=== PATIENT | male | born 1940 | race Caucasian/White ===

== ENCOUNTER 2016-09-16 15:13 | Emergency (ER) | payer MEDICARE, BC ==
[2016-09-16 15:28] VITALS: BP 166/97
--- NOTE | 2016-09-16 15:56 | EDM.PDOC ---
[id number] STUCK IN THROAT Time Seen by Provider: 09/16/16 15:30 Source of Information: Reports: Patient, Family History Limitations: Reports: No Limitations - History of Present Illness INITIAL COMMENTS - FREE TEXT/NARRATIVE: 76-year-old male with an esophageal foreign body for the past hour and a half. It occurred after he accidentally swallowed a whole grape. He had a similar incident with pork chop within the last 3 years. He is unable to swallow any fluids. Onset: Sudden Duration: Hour(s): (1-1/2 hours ago) Epigastric Pain Score (Numeric/FACES): 2 - Related Data Allergies Allergy/AdvReac Type Severity Reaction Status Date / Time No Known Allergies Allergy Verified 09/16/16 15:28 Home Meds: Home Meds Atenolol [Tenormin] 50 mg PO BEDTIME 10/03/14 [History] Simvastatin [Simvastatin] 40 mg PO BEDTIME 10/03/14 [History] metFORMIN [Glucophage] 1,000 mg PO BID 10/03/14 [History] Past Medical History Cardiovascular History: Reports: High Cholesterol, Hypertension Endocrine/Metabolic History: Reports: Diabetes, Type II - Past Surgical History GI Surgical History: Reports: Hernia, Inguinal Other GI Surgeries/Procedures: ESOPHAGEAL STRICTURE Social & Family History - Tobacco Use Smoking Status *Q: Unknown Ever Smoked - Recreational Drug Use Recreational Drug Use: No ED ROS GENERAL - Review of Systems Review Of Systems: See Below Constitutional: Denies: Fever, Chills Respiratory: Denies: Shortness of Breath, Cough Cardiovascular: Denies: Chest Pain GI/Abdominal: Reports: Abdominal Pain (Some discomfort in the upper abdomen) ED EXAM, GI/ABD - Physical Exam Exam: See Below Exam Limited By: No Limitations General Appearance: Alert, No Apparent Distress Respiratory/Chest: No Respiratory Distress, Lungs Clear GI/Abdominal Exam: Normal Bowel Sounds, Soft, Other (Only minimal discomfort with palpation of the upper abdomen) Course - Vital Signs Last Recorded V/S: Last Vital Signs Temp 98.0 F 09/16/16 15:22 Pulse 90 09/16/16 15:22 Resp 15 09/16/16 15:22 BP 166/97 H 09/16/16 15:22 Pulse Ox 97 09/16/16 15:22 - Re-Assessments/Exams Free Text/Narrative Re-Assessment/Exam: 09/16/16 16:13 The patient needs to leave in 2 hours to provide transportation to a family member, it is impossible to have the procedure done within that time. After discussing his symptoms with surgery, the patient will give this this evening and possibly until tomorrow morning and will return if symptoms haven't resolved in the next 12 hours. He will return sooner if worsening. Departure - Departure Time of Disposition: 16:20 Disposition: Home, Self-Care 01 Condition: Good Clinical Impression: Esophagus, foreign body Qualifiers: Encounter type: initial encounter Qualified Code(s): T18.108A - Unspecified foreign body in esophagus causing other injury, initial encounter - Discharge Information Instructions: Swallowed Foreign Body, Adult, [id number] Referrals: Aquiles Churchill MD [Primary Care Provider] - Forms: ED Department Discharge Care Plan Goals: Continuing to attempt to drink small amounts of fluids is okay. Return this evening if worsening or very uncomfortable. Otherwise recheck tomorrow morning if symptoms haven't resolved.
== END 2016-09-16 16:22 | disposition home or self-care (01) ==
LOC: JP.ED 15:13
DX: T18.128A Food in esophagus causing other injury, initial encounter (principal); I10 Essential (primary) hypertension; E78.00 Pure hypercholesterolemia, unspecified; E11.9 Type 2 diabetes mellitus without complications; Z98.890 Other specified postprocedural states
CPT/HCPCS: 99283

== ENCOUNTER 2018-10-17 13:13 | Emergency (ER) | payer BC, MEDICARE ==
[2018-10-17] MEDS ORDERED: Aspirin 81 MG Tab.Chew PO ONE (13:35)
[2018-10-17 13:45] VITALS: BP 147/78
--- NOTE | 2018-10-17 13:46 | EDM.PDOC ---
ED HPI GENERAL MEDICAL PROBLEM - General Chief Complaint: Neuro Symptoms/Deficits Stated Complaint: POSSIBLE STROKE Time Seen by Provider: 10/17/18 13:30 Source of Information: Reports: Patient, Family, Old Records, RN History Limitations: Reports: No Limitations - History of Present Illness INITIAL COMMENTS - FREE TEXT/NARRATIVE: 78 yo male here after a spell of slurred speech and possibly facial droop that was of short duration today. Had a similar spell in the past for which he was not seen by or reported to his provider or any provider. His sx's are all resolved today before arrival. He is on ASA 81 mg daily and did take it today. Says his BP is usually in the 120's. Saw his provider for ? sciatica within the week. Here now with his . His grandson thinks there was facial droop, but cannot recall what side was drooping. There is no reported JAMES. No chest pain or nausea. Ate lunch before the onset of sx's. Onset: Today, Sudden Onset Date: 10/17/18 Onset Time: 12:45 Duration: Minutes: Location: Reports: Face Quality: Reports: Other (no pain reported) Severity: Moderate Improves with: Reports: Other (time) Worsens with: Reports: Other (unknown) Context: Reports: Other (see HPI) Associated Symptoms: Reports: No Other Symptoms Treatments [employer]: Reports: Other (see below) (none) Right Posterior Leg Pain Score (Numeric/FACES): 5 - Related Data Allergies Allergy/AdvReac Type Severity Reaction Status Date / Time No Known Allergies Allergy Verified 10/17/18 13:30 Home Meds: Home Meds Atenolol [Tenormin] 50 mg PO BEDTIME 10/03/14 [History] Simvastatin 40 mg PO BEDTIME 10/03/14 [History] metFORMIN [Glucophage] 1,000 mg PO BID 10/03/14 [History] Aspirin [Adult Low Dose Aspirin EC] 81 mg PO DAILY 10/17/18 [History] Gabapentin [Neurontin] 100 mg PO BEDTIME 10/17/18 [History] Past Medical History Cardiovascular History: Reports: High Cholesterol, Hypertension Endocrine/Metabolic History: Reports: Diabetes, Type II - Past Surgical History GI Surgical History: Reports: Hernia, Inguinal Other GI Surgeries/Procedures: ESOPHAGEAL STRICTURE ED ROS GENERAL - Review of Systems Review Of Systems: See Below Constitutional: Reports: No Symptoms HEENT: Reports: No Symptoms Respiratory: Reports: No Symptoms Cardiovascular: Reports: No Symptoms GI/Abdominal: Reports: No Symptoms : Reports: No Symptoms Musculoskeletal: Reports: No Symptoms Skin: Reports: No Symptoms Neurological: Reports: Trouble Speaking, Change in Speech, Other (possible facial droop) Psychiatric: Reports: No Symptoms ED EXAM, NEURO - Physical Exam Exam: See Below Exam Limited By: No Limitations General Appearance: Alert, WD/WN, No Apparent Distress Eye Exam: Bilateral Eye: EOMI, Normal Inspection, PERRL Ears: Normal External Exam, Normal Canal, Normal TMs, Hearing Loss, Other ( bilateral hearing aids) Nose: Normal Inspection, No Blood Throat/Mouth: Normal Inspection, Normal Lips, Normal Oropharynx, Normal Voice, No Airway Compromise, Other (dentures up and down) Head Exam: Atraumatic, Normocephalic Neck: Normal Inspection, Supple, Non-Tender Respiratory/Chest: No Respiratory Distress, Lungs Clear, Normal Breath Sounds, No Accessory Muscle Use Cardiovascular: Regular Rate, Rhythm, No Edema GI/Abdominal: Normal Bowel Sounds, Soft, Non-Tender, No Distention Neurological: Alert, Normal Mood/Affect, Normal Dorsiflexion, CN II-XII Intact, Normal Plantar Flexion, No Motor/Sensory Deficits, Oriented x 3 DTR: 2+: Bicep (R), Bicep (L), Tricep (R), Tricep (L), Patella (R), Patella (L) , Achilles (R), Achilles (L) Back Exam: Normal Inspection, Full Range of Motion. No: CVA Tenderness (R), CVA Tenderness (L) Extremities: Normal Inspection, Normal Range of Motion, Non-Tender, No Pedal Edema Psychiatric: Normal Affect, Normal Mood Skin Exam: Warm, Dry, Intact, Normal Color, No Rash Course - Vital Signs Text/Narrative:: Case discussed with Dr. Lord @ 143h, Called Dr. Churchill(patient's primary) @ [phone]....still no return of my call after 30 minutes. Patient wants to go, will follow up with him in clinic. Last Recorded V/S: Last Vital Signs Temp 35.8 C 10/17/18 13:43 Pulse 81 10/17/18 13:43 Resp 18 10/17/18 13:43 BP 147/78 H 10/17/18 13:43 Pulse Ox 97 10/17/18 13:43 - Orders/Labs/Meds Orders: Active Orders 24 hr Category Date Time Status Cardiac Monitoring [RC] .As Directed Care 10/17/18 13:45 Active Labs: Laboratory Tests 10/17/18 10/17/18 10/17/18 Range/Units 13:54 13:54 14:10 WBC 8.9 (4.5-11.0) K/uL RBC 4.89 (4.30-5.90) M/uL Hgb 13.9 (12.0-15.0) g/dL Hct 43.2 (40.0-54.0) % MCV 88 (80-98) fL MCH 28 (27-31) pg MCHC 32 (32-36) % Plt Count 236 (150-400) K/uL Sodium 135 L (140-148) mmol/L Potassium 4.7 (3.6-5.2) mmol/L Chloride 100 (100-108) mmol/L Carbon Dioxide 26 (21-32) mmol/L Anion Gap 13.7 (5.0-14.0) mmol/L BUN 24 H (7-18) mg/dL Creatinine 1.3 (0.8-1.3) mg/dL Est Cr Clr Drug Dosing TNP Estimated GFR (MDRD) 54 L (>60) Glucose 111 H (74-106) mg/dL Calcium 8.8 (8.5-10.1) mg/dL Troponin I < 0.017 (0.000-0.056) ng/mL Urine Color Yellow (YELLOW) Urine Appearance Clear (CLEAR) Urine pH 6.0 (5.0-8.0) Ur Specific [place] 1.010 (1.008-1.030) Urine Protein Negative (NEGATIVE) mg/dL Urine Glucose (UA) Normal (NEGATIVE) mg/dL Urine Ketones Negative (NEGATIVE) mg/dL Urine Occult Blood Negative (NEGATIVE) Urine Nitrite Negative (NEGATIVE) Urine Bilirubin Negative (NEGATIVE) Urine Urobilinogen 0.2 (0.2-1.0) EU/dL Ur Leukocyte Esterase Negative (NEGATIVE) Urine RBC Not seen (0-5) Urine WBC Not seen (0-5) Ur Epithelial Cells Not seen Amorphous Sediment Few Urine Bacteria Not seen Urine Mucus Not seen Meds: Medications Discontinued Medications Generic Name Dose Route Start Last Admin Trade Name Samir PRN Reason Stop Dose Admin Aspirin 324 mg 10/17/18 13:35 10/17/18 13:39 Aspirin PO 10/17/18 13:36 324 mg ONETIME ONE Administration - Radiology Interpretation Free Text/Narrative:: Head CT without contrast- IMPRESSION: 1. No evidence of acute hemorrhage, mass effect or cortical based infarction. 2. Small vessel ischemic changes and mild volume loss. CT Results Date: 10/17/18 Departure - Departure Time of Disposition: 15:25 Disposition: Home, Self-Care 01 Condition: Fair Clinical Impression: TIA (transient ischemic attack) - Discharge Information *PRESCRIPTION DRUG MONITORING PROGRAM REVIEWED*: No *COPY OF PRESCRIPTION DRUG MONITORING REPORT IN PATIENT JAMES: No Instructions: Transient Ischemic Attack, [id number] Referrals: Aquiles Churchill MD [Primary Care Provider] - Forms: ED Department Discharge Additional Instructions: Continue all your current medications. Best not to drive until Dr. Churchill thinks it is safe to do so. See Dr. Churchill in his office [place] for follow up and to arrange for further outpatient testing. - My Orders Last 24 Hours: My Active Orders 10/17/18 13:45 Cardiac Monitoring [RC] .As Directed - Assessment/Plan Last 24 Hours: My Active Orders 10/17/18 13:45 Cardiac Monitoring [RC] .As Directed
--- NOTE | 2018-10-17 14:18 | CRLCT ---
INDICATION: 78-year-old male. Slurred speech. TECHNIQUE: CT images from foramen magnum to the vertex without contrast. Axial and coronal reconstructions are reviewed. FINDINGS: The ventricles and subarachnoid spaces are mildly prominent due to mild volume loss. No acute intracranial hemorrhage no subdural fluid collections no mass effect. Small vessel ischemic changes within deep supratentorial white matter. Preservation of vaughn-white interface. No hyperdense cerebral artery sign to suggest acute infarction is seen. The left carotid calcifications parasellar internal carotid arteries. The orbits and bony calvarium and skull base are unremarkable. IMPRESSION: 1. No evidence of acute hemorrhage, mass effect or cortical based infarction. 2. Small vessel ischemic changes and mild volume loss. Please note that all CT scans at this facility use dose modulation, iterative reconstruction, and/or weight-based dosing when appropriate to reduce radiation dose to as low as reasonably achievable. Dictated by Zane Hopepr MD @ Oct 17 2018 2:14PM Signed by Dr. Zane Hopper @ Oct 17 2018 2:17PM
== END 2018-10-17 15:27 | disposition home or self-care (01) ==
LOC: JP.ED 13:13
DX: G45.9 Transient cerebral ischemic attack, unspecified (principal); I10 Essential (primary) hypertension; E11.9 Type 2 diabetes mellitus without complications; E78.00 Pure hypercholesterolemia, unspecified; Z79.82 Long term (current) use of aspirin; Z79.899 Other long term (current) drug therapy
CPT/HCPCS: 36415; 70450; 80048; 81001; 84484; 85027; 99284; A9270

== ENCOUNTER 2020-04-23 15:38 | Emergency (ER) | payer BC, MEDICARE, OTHER, SELFPAY ==
[2020-04-23 15:55] VITALS: BP 153/56; PULSE 79
[2020-04-23] MEDS ORDERED: Sodium Chloride 0.9% 10 ML Syringe FLUSH PRN (16:19)
--- NOTE | 2020-04-23 16:25 | EDM.PDOC ---
ED HPI GENERAL MEDICAL PROBLEM - General Chief Complaint: General Stated Complaint: NUMBNESS IN ARM,HEADACHE Time Seen by Provider: 04/23/20 16:02 Source of Information: Reports: Patient, Family, Old Records, RN Notes Reviewed History Limitations: Reports: No Limitations - History of Present Illness INITIAL COMMENTS - FREE TEXT/NARRATIVE: 80-year-old gentleman presents the emergency department a complaint of intermittent right arm numbness, he states is been going on for about a week lasts about 10 to 15 minutes and then resolves. He does have a history of strokelike symptoms evaluated a couple years ago underwent MRI which did show an infarct in the frontal lobe right side. He has been taking an aspirin full dose daily has no other complaints at this time, his arm did go numb today but is not numb now he describes the numbness mainly on the lateral aspect of the arm he is describing a C5-C6 distribution - Related Data Allergies Allergy/AdvReac Type Severity Reaction Status Date / Time No Known Allergies Allergy Verified 10/17/18 13:30 Home Meds: Home Meds Simvastatin 40 mg PO BEDTIME 10/03/14 [History] atenoloL [Tenormin] 50 mg PO BEDTIME 10/03/14 [History] metFORMIN [Glucophage] 1,000 mg PO BID 10/03/14 [History] Aspirin [Adult Low Dose Aspirin EC] 81 mg PO DAILY 10/17/18 [History] Gabapentin [Neurontin] 100 mg PO BEDTIME 10/17/18 [History] Past Medical History HEENT History: Reports: Hard of Hearing Cardiovascular History: Reports: High Cholesterol, Hypertension Respiratory History: Reports: Pneumonia, Recurrent Musculoskeletal History: Reports: Back Pain, Chronic 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) Endocrine/Metabolic History: Reports: Diabetes, Type II Dermatologic History: Reports: Other (See Below) Other Dermatologic History: rash - Infectious Disease History Infectious Disease History: Reports: Chicken Pox, Measles, Mumps - Past Surgical History HEENT Surgical History: Reports: Oral Surgery GI Surgical History: Reports: Hernia, Inguinal Other GI Surgeries/Procedures: ESOPHAGEAL STRICTURE Social & Family History - Tobacco Use Tobacco Use Status *Q: Never Tobacco User - Caffeine Use Caffeine Use: Reports: Coffee ED ROS GENERAL - Review of Systems Review Of Systems: See Below Constitutional: Reports: No Symptoms HEENT: Reports: No Symptoms Respiratory: Reports: No Symptoms Cardiovascular: Reports: No Symptoms GI/Abdominal: Reports: No Symptoms : Reports: No Symptoms Musculoskeletal: Reports: No Symptoms Skin: Reports: No Symptoms Neurological: Reports: Numbness ED EXAM, GENERAL - Physical Exam Exam: See Below Free Text/Narrative:: Cranial nerves II test with pupillary light reflex 4 mm to 2 mm bilaterally, CN III test pupillary constriction, lid elevation and eye abduction bilaterally, CN IV downward movement of eyes bilaterally, CN V good jaw movement, CN lateral deviation of the eyes bilaterally to finger movement, CN VII symmetrical smile shows teeth without difficulty, CN VIII pass finger rub to ears bilaterally, CN IX adequate voice and tone, CN X adequate voice and tone no difficulty swallowing, CN XI can shrug shoulders without difficulty, CN XII can stick tongue out without difficulty, cranial nerves II to XII intact as tested, power is 5 out 5 in upper and lower extremities, patellar reflex, biceps reflex +2 can do finger to nose without difficulty, no dysdiadochokinesis, no difficulty with rapid alternating movements can do [id number] without dif ficulty, Romberg is negative, has adequate gait can do heel to toe, can toe walk and heel walk no cerebellar dysfunction , no focal neurologic deficit Exam Limited By: No Limitations General Appearance: Alert, WD/WN, No Apparent Distress Nose: Normal Inspection, Normal Mucosa, No Blood Throat/Mouth: Normal Inspection, Normal Lips, Normal Teeth, Normal Gums, Normal Oropharynx, Normal Voice, No Airway Compromise Head: Atraumatic, Normocephalic Neck: Normal Inspection, Supple, Non-Tender, Full Range of Motion Respiratory/Chest: No Respiratory Distress, Lungs Clear, Normal Breath Sounds, No Accessory Muscle Use, Chest Non-Tender Cardiovascular: Regular Rate, Rhythm, No Murmur GI/Abdominal: Soft, Non-Tender Course - Vital Signs Last Recorded V/S: Last Vital Signs Temp 98 F 04/23/20 17:59 Pulse 79 04/23/20 17:59 Resp 18 04/23/20 17:59 BP 153/56 H 04/23/20 17:59 Pulse Ox 97 04/23/20 17:59 - Orders/Labs/Meds Orders: Active Orders 24 hr Category Date Time Status EKG Documentation Completion [RC] ASDIRECTED Care 04/23/20 16:20 Active Peripheral IV Care [RC] . DIRECTED Care 04/23/20 16:20 Active Sodium Chloride 0.9% [Normal Saline] 1,000 ml Med 04/23/20 16:30 Active IV .BOLUS Sodium Chloride 0.9% [Saline Flush] Med 04/23/20 16:19 Active 10 ml FLUSH ASDIRECTED PRN Peripheral IV Insertion Adult [OM.PC] Urgent Oth 04/23/20 16:19 Ordered EKG 12 Lead [EK] Stat Ther 04/23/20 16:19 Ordered Medication Orders Sodium Chloride (Normal Saline) 1,000 mls @ 500 mls/hr IV .BOLUS SIMEON Last Admin: 04/23/20 17:58 Dose: 500 mls/hr Documented by: CARA Sodium Chloride (Sodium Chloride 0.9% 10 Ml Syringe) 10 ml FLUSH ASDIRECTED PRN PRN Reason: Keep Vein Open Labs: Laboratory Tests 04/23/20 04/23/20 04/23/20 Range/Units 16:34 16:34 16:34 WBC 8.1 (4.5-11.0) K/uL RBC 4.83 (4.30-5.90) M/uL Hgb 14.0 (12.0-15.0) g/dL Hct 43.3 (40.0-54.0) % MCV 90 (80-98) fL MCH 29 (27-31) pg MCHC 32 (32-36) % Plt Count 215 (150-400) K/uL Neut % (Auto) 63 (36-66) % Lymph % (Auto) 23 L (24-44) % [place] % (Auto) 9 H (2-6) % Eos % (Auto) 4 (2-4) % Baso % (Auto) 0 (0-1) % PT 10.8 (9.5-12.0) sec INR 0.99 (0.80-1.20) APTT 24.3 L (27.0-36.0) sec Sodium 142 (140-148) mmol/L Potassium 3.9 (3.6-5.2) mmol/L Chloride 104 (100-108) mmol/L Carbon Dioxide 25 (21-32) mmol/L Anion Gap 12.7 (5.0-14.0) mmol/L BUN 20 H (7-18) mg/dL Creatinine 1.4 H (0.8-1.3) mg/dL Est Cr Clr Drug Dosing 38.43 mL/min Estimated GFR (MDRD) 49 L (>60) Glucose 151 H (74-106) mg/dL Lactic Acid (0.4-2.0) mmol/L Calcium 8.8 (8.5-10.1) mg/dL Total Bilirubin 0.4 (0.2-1.0) mg/dL AST 20 (15-37) U/L ALT 26 (12-78) U/L Alkaline Phosphatase 79 (46-116) U/L Total Protein 7.3 (6.4-8.2) g/dL Albumin 4.0 (3.4-5.0) g/dL Globulin 3.3 (2.3-3.5) g/dL Albumin/Globulin Ratio 1.2 (1.2-2.2) 04/23/20 Range/Units 16:34 WBC (4.5-11.0) K/uL RBC (4.30-5.90) M/uL Hgb (12.0-15.0) g/dL Hct (40.0-54.0) % MCV (80-98) fL MCH (27-31) pg MCHC (32-36) % Plt Count (150-400) K/uL Neut % (Auto) (36-66) % Lymph % (Auto) (24-44) % [place] % (Auto) (2-6) % Eos % (Auto) (2-4) % Baso % (Auto) (0-1) % PT (9.5-12.0) sec INR (0.80-1.20) APTT (27.0-36.0) sec Sodium (140-148) mmol/L Potassium (3.6-5.2) mmol/L Chloride (100-108) mmol/L Carbon Dioxide (21-32) mmol/L Anion Gap (5.0-14.0) mmol/L BUN (7-18) mg/dL Creatinine (0.8-1.3) mg/dL Est Cr Clr Drug Dosing mL/min Estimated GFR (MDRD) (>60) Glucose (74-106) mg/dL Lactic Acid 3.1 H (0.4-2.0) mmol/L Calcium (8.5-10.1) mg/dL Total Bilirubin (0.2-1.0) mg/dL AST (15-37) U/L ALT (12-78) U/L Alkaline Phosphatase (46-116) U/L Total Protein (6.4-8.2) g/dL Albumin (3.4-5.0) g/dL Globulin (2.3-3.5) g/dL Albumin/Globulin Ratio (1.2-2.2) Meds: Medications Generic Name Dose Route Start Last Admin Trade Name Freq PRN Reason Stop Dose Admin Sodium Chloride 1,000 mls @ 500 mls/hr 04/23/20 16:30 04/23/20 17:58 Normal Saline IV 500 mls/hr .BOLUS SIMEON Administration Sodium Chloride 10 ml 04/23/20 16:19 Sodium Chloride 0.9% 10 Ml Syringe FLUSH ASDIRECTED PRN Keep Vein Open Discontinued Medications Generic Name Dose Route Start Last Admin Trade Name Freq PRN Reason Stop Dose Admin Sodium Chloride 100 mls @ 3.5 mls/sec 04/23/20 17:00 Normal Saline IV 04/23/20 17:01 ASDIRECTED SIMEON Iopamidol 100 ml 04/23/20 17:00 Iopamidol 755 Mg/Ml 100 Ml Bottle IV 04/23/20 18:00 . DIRECTED SIMEON Sodium Chloride 10 ml 04/23/20 17:00 Sodium Chloride 0.9% 10 Ml Syringe FLUSH 04/23/20 17:01 ONETIME ONE Departure - Departure Time of Disposition: 18:22 Disposition: Home, Self-Care 01 Condition: Fair Clinical Impression: Right arm numbness - Discharge Information Referrals: Aquiles Churchill MD [Primary Care Provider] - Forms: ED Department Discharge Additional Instructions: Please follow-up with your primary care this next week for further evaluation, call or return to the emergency department worsening of symptoms Sepsis Event Note (ED) - Focused Exam Vital Signs: Vital Signs Temp Pulse Resp BP Pulse Ox 04/23/20 17:59 98 F 79 18 153/56 H 97 04/23/20 15:54 98 F 79 18 153/56 H 97 - My Orders Last 24 Hours: My Active Orders 04/23/20 16:19 Sodium Chloride 0.9% [Saline Flush] 10 ml FLUSH ASDIRECTED PRN Peripheral IV Insertion Adult [OM.PC] Urgent EKG 12 Lead [EK] Stat 04/23/20 16:20 EKG Documentation Completion [RC] ASDIRECTED Peripheral IV Care [RC] . DIRECTED 04/23/20 16:30 Sodium Chloride 0.9% [Normal Saline] 1,000 ml IV .BOLUS - Assessment/Plan Last 24 Hours: My Active Orders 04/23/20 16:19 Sodium Chloride 0.9% [Saline Flush] 10 ml FLUSH ASDIRECTED PRN Peripheral IV Insertion Adult [OM.PC] Urgent EKG 12 Lead [EK] Stat 04/23/20 16:20 EKG Documentation Completion [RC] ASDIRECTED Peripheral IV Care [RC] . 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
[2020-04-23] MEDS ORDERED: Sodium Chloride 0.9% 1,000 ML IV SCH (16:30)
[2020-04-23] MEDS ORDERED: Sodium Chloride 0.9% 10 ML Syringe FLUSH ONE (17:00)
[2020-04-23] MEDS ORDERED: Sodium Chloride 0.9% 100 ML IV SCH (17:00)
[2020-04-23] MEDS ORDERED: Iopamidol 755 Mg/ML 100 ML Bottle IV SCH (17:00)
--- NOTE | 2020-04-23 18:04 | CRLCT ---
CT HEAD DATE: 04/23/2020 CLINICAL HISTORY: Patient with right arm numbness and headache. TECHNIQUE: Standard CT scanning of the head was performed. COMPARISON: CT 10/17/2018. FINDINGS: There is no intracranial hemorrhage. There is no territorial infarction. There is an old lacunar infarct in the left basal ganglia. There are mild microangiopathic changes. There is diffuse parenchymal volume loss. There is no mass effect or midline shift. The calvarium is unremarkable. The orbits are unremarkable. The paranasal sinuses are unremarkable. The mastoid air cells are unremarkable. The soft tissues are unremarkable. IMPRESSION: 1. No intracranial hemorrhage or territorial infarction. 2. Old lacunar infarct in the left basal ganglia. 3. Mild microangiopathic changes and diffuse parenchymal volume loss. Please note that all CT scans at this facility use dose modulation, iterative reconstruction, and/or weight-based dosing when appropriate to reduce radiation dose to as low as reasonably achievable. Dictated by: Eunice Blanco MD @ 04/23/2020 18:03:37 (Electronically Signed)
--- NOTE | 2020-04-23 18:08 | CRLCT ---
CT ANGIOGRAM HEAD DATE: 04/23/2020 CLINICAL HISTORY: Patient with right arm numbness and headache. TECHNIQUE: Standard helical CT image acquisition through the intracranial circulation following intravenous administration of contrast material with bolus tracking. Multiplanar reconstructed images were performed and interpreted. COMPARISON: CT same day. FINDINGS: There is no cerebral aneurysm or large vessel occlusion. There is mild diffuse intracranial atherosclerosis. IMPRESSION: 1. No cerebral aneurysm or large vessel occlusion. 2. Mild diffuse intracranial atherosclerosis. Please note that all CT scans at this facility use dose modulation, iterative reconstruction, and/or weight-based dosing when appropriate to reduce radiation dose to as low as reasonably achievable. Dictated by: Eunice lBanco MD @ 04/23/2020 18:07:18 (Electronically Signed)
== END 2020-04-23 18:50 | disposition home or self-care (01) ==
LOC: JP.ED 15:38
DX: R20.0 Anesthesia of skin (principal); E78.00 Pure hypercholesterolemia, unspecified; I10 Essential (primary) hypertension; E11.9 Type 2 diabetes mellitus without complications; Z79.82 Long term (current) use of aspirin; Z79.84 Long term (current) use of oral hypoglycemic drugs; Z79.899 Other long term (current) drug therapy; Z86.73 Personal history of transient ischemic attack (TIA), and cerebral infarction without residual deficits
CPT/HCPCS: 36415; 70450; 70496; 80053; 83605; 85025; 85610; 85730; 93005; 99283; 99284-25; J7030; Q9967

== ENCOUNTER 2020-06-22 12:45 | Emergency (ER) | payer MEDICARE ==
[2020-06-22 12:57] VITALS: BP 149/69; PULSE 79
--- NOTE | 2020-06-22 13:23 | EDM.PDOC ---
ED HPI GENERAL MEDICAL PROBLEM - General Chief Complaint: Neuro Symptoms/Deficits Stated Complaint: POSSIBLE STROKE Time Seen by Provider: 06/22/20 13:00 Source of Information: Reports: Patient, Family History Limitations: Reports: No Limitations - History of Present Illness INITIAL COMMENTS - FREE TEXT/NARRATIVE: 80-year-old male with a previous history of TIAs, developed right-sided facial weakness, right arm weakness, and dysarthria around 2 hours ago. He had no headache, visual complaints, shortness of breath, palpitations, lower extremity weakness or dizziness. He has had the symptoms in the past and they have resolved. He took a full dose aspirin, and within 30 minutes it did not seem to be improving significantly so decided to come in. However between the time he decided to come in and the time he got here, the symptoms are now markedly improved. He still has some slight dysarthria, very slight facial droop but otherwise he feels fine. Onset: Sudden Duration: Hour(s): (Just under 2 hours ago) Location: Reports: Face, Upper Extremity, Right Quality: Reports: Other (Asymptomatic other than weakness) Associated Symptoms: Reports: Weakness (Right arm and right face only). Denies: Confusion, Chest Pain, Cough, Fever/Chills, Loss of Appetite, Malaise, Nausea/Vomiting, Shortness of Breath - Related Data Allergies Allergy/AdvReac Type Severity Reaction Status Date / Time No Known Allergies Allergy Verified 06/22/20 12:53 Home Meds: Home Meds Simvastatin 40 mg PO BEDTIME 10/03/14 [History] atenoloL [Tenormin] 50 mg PO BEDTIME 10/03/14 [History] metFORMIN [Glucophage] 1,000 mg PO BID 10/03/14 [History] Aspirin [Adult Low Dose Aspirin EC] 81 mg PO DAILY 10/17/18 [History] Gabapentin [Neurontin] 100 mg PO BEDTIME 10/17/18 [History] Past Medical History HEENT History: Reports: Hard of Hearing Cardiovascular History: Reports: High Cholesterol, Hypertension Respiratory History: Reports: Pneumonia, Recurrent Musculoskeletal History: Reports: Back Pain, Chronic Neurological History: Reports: CVA Endocrine/Metabolic History: Reports: Diabetes, Type II Dermatologic History: Reports: Other (See Below) Other Dermatologic History: rash - Infectious Disease History Infectious Disease History: Reports: Chicken Pox, Measles, Mumps - Past Surgical History HEENT Surgical History: Reports: Oral Surgery GI Surgical History: Reports: Hernia, Inguinal Other GI Surgeries/Procedures: ESOPHAGEAL STRICTURE Social & Family History - Tobacco Use Tobacco Use Status *Q: Never Tobacco User - Caffeine Use Caffeine Use: Reports: Coffee ED ROS GENERAL - Review of Systems Review Of Systems: See Below Constitutional: Denies: Fever, Chills, Malaise HEENT: Denies: Vision Change Respiratory: Denies: Shortness of Breath, Cough Cardiovascular: Denies: Chest Pain, Palpitations GI/Abdominal: Denies: Abdominal Pain, Nausea, Vomiting Musculoskeletal: Reports: No Symptoms Skin: Denies: Pallor, Bruising Neurological: Reports: Other (Symptoms are explained in HPI). Denies: Dizziness, Headache Psychiatric: Reports: No Symptoms ED EXAM, NEURO - Physical Exam Exam: See Below Exam Limited By: No Limitations General Appearance: Alert, No Apparent Distress Eye Exam: Bilateral Eye: EOMI, Normal Inspection (Vision davison intact) Head Exam: Atraumatic Neck: Supple, Non-Tender. No: Carotid Bruit Respiratory/Chest: No Respiratory Distress, Lungs Clear Cardiovascular: Regular Rate, Rhythm. No: Extra Beats GI/Abdominal: Soft, Non-Tender Neurological: Alert, Normal Gait, Oriented x 3, Other (Very minimal right grasp weakness compared to the left, and very subtle right facial deficit or his only objective findings at this time) Course - Vital Signs Last Recorded V/S: Last Vital Signs Temp 97.8 F 06/22/20 12:51 Pulse 79 06/22/20 12:51 Resp 16 06/22/20 12:51 BP 149/69 H 06/22/20 12:51 Pulse Ox 99 06/22/20 12:51 - Re-Assessments/Exams Free Text/Narrative Re-Assessment/Exam: 06/22/20 13:22 Patient was sent back for a CT of his head without contrast. I explained to him that he has had several of these now which are warning signs and he should have a neurological evaluation. 06/22/20 13:[address] is negative, I reviewed his records and last visit he had a CT angiogram, follow-up carotid Dopplers and has had a full work-up. I am going to discuss stronger anticoagulant with his primary provider, Dr. Churchill, but he has not called me back. I like the patient to recheck later this week to discuss Eliquis or some other option. Departure - Departure Time of Disposition: 14:15 Disposition: Home, Self-Care 01 Clinical Impression: TIA (transient ischemic attack) - Discharge Information Instructions: Transient Ischemic Attack, [id number] Referrals: Aquiles Churchill MD [Primary Care Provider] - Forms: ED Department Discharge Care Plan Goals: Continue your current medications, call the clinic to see if you can get a recheck later this week with Dr. Churchill to discuss different medications for TIA prevention. Return to the emergency room if worsening or concerns. Sepsis Event Note (ED) - Evaluation Sepsis Screening Result: No Definite Risk - Focused Exam Vital Signs: Vital Signs Temp Pulse Resp BP Pulse Ox 06/22/20 12:51 97.8 F 79 16 149/69 H 99
--- NOTE | 2020-06-22 13:42 | CT ---
Head wo Cont CLINICAL HISTORY: Screening COMPARISON: 04/23/2020 TECHNIQUE: Transverse scans were obtained from the base of the skull through the vertex without IV contrast on a multislice, multidetector CT scanner. Auto dosage reduction and iterative reconstruction techniques employed. FINDINGS: No focal abnormal parenchymal density is identified. There is no mass effect, hemorrhage, or extraaxial collection. There is some chronic ischemic microvascular change The basal cisterns and sulci over the convexities are prominent. The ventricles are prominent. IMPRESSION: Age-related atrophy No acute intracranial process
== END 2020-06-22 14:15 | disposition home or self-care (01) ==
LOC: JP.ED 12:45
DX: G45.9 Transient cerebral ischemic attack, unspecified (principal); E78.00 Pure hypercholesterolemia, unspecified; I10 Essential (primary) hypertension; E11.9 Type 2 diabetes mellitus without complications; Z79.82 Long term (current) use of aspirin; Z79.84 Long term (current) use of oral hypoglycemic drugs; Z79.899 Other long term (current) drug therapy
CPT/HCPCS: 70450; 70450-26; 99285-25

== ENCOUNTER → 2024-04-03 | Day surgery (SDC) | payer MEDICARE ==
[~2024-04-03] MED LIST: Dexamethasone 4 MG/ML SDV ONE; Glycopyrrolate 0.2 MG/ML 5 ML MDV ONE; Neostigmine Methylsulfate 10 MG/10 ML MDV ONE; Ondansetron 4 MG/2 ML SDV ONE; Propofol 200 MG/20 ML SDV ONE; Rocuronium 50 MG/5 ML Vial ONE; Succinylcholine 200 MG/10 ML MDV ONE; fentaNYL 100 MCG/2 ML SDV ONE
[2024-04-03] MEDS: Glucagon,Human Recombinant 1 MG Vial IM ONE (17:21)
[2024-04-03] MEDS: Ondansetron 4 MG/2 ML SDV IVPUSH ONE (17:21)
[2024-04-04 00:23] VITALS: BP 177/79; PULSE 100
== END | disposition home or self-care (01) ==
LOC: JP.ED 16:41 → JP.SDS 19:26
PROVIDERS: ATTEND Surgery
DX: T18.128A Food in esophagus causing other injury, initial encounter (principal); I10 Essential (primary) hypertension; E78.00 Pure hypercholesterolemia, unspecified; E11.9 Type 2 diabetes mellitus without complications; Z87.891 Personal history of nicotine dependence; Z79.84 Long term (current) use of oral hypoglycemic drugs; Z79.82 Long term (current) use of aspirin; Z79.899 Other long term (current) drug therapy; W44.8XXA Other foreign body entering into or through a natural orifice, initial encounter
CPT/HCPCS: 71046; 96372; 96374; 99284; J0330; J1100; J1596; J1610; J2405; J2704; J2710; J3010; 00731-QZ; J3490

== ENCOUNTER 2024-04-18 17:59 | Emergency (ER) | payer MEDICARE ==
[2024-04-18 18:34] LABS: BASOPHILS ABSOLUTE AUTO 0.04 K/uL (0.00-0.10); BASOPHILS PERCENT AUTO 0.5 % (0.1-1.3); EOSINOPHILS ABSOLUTE AUTO 0.34 K/uL (0.00-0.40); EOSINOPHILS PERCENT AUTO 4.2 % (0.0-5.4); HEMATOCRIT 40.2 % (38.4-49.7); HEMOGLOBIN 13.4 g/dL (12.9-16.9); IMMATURE GRAN PERCENT AUTO 0.2 % (0.0-0.7); LYMPHOCYTES ABSOLUTE AUTO 1.42 K/uL (0.8-3.3); LYMPHOCYTES PERCENT AUTO 17.5 % (11.4-47.7); MEAN CORPUSCULAR HEMOGLOBIN 29.8 pg (31.6-35.5); MEAN CORPUSCULAR HGB CONC 33.3 g/dL (31.6-35.5); MEAN CORPUSCULAR VOLUME 89.3 fL (81.4-99.0); MONOCYTES ABSOLUTE AUTO 0.92 K/uL (0.20-0.90); MONOCYTES PERCENT AUTO 11.3 % (3.3-12.6); NEUTROPHILS ABSOLUTE AUTO 5.38 K/uL (1.0-7.6); NEUTROPHILS PERCENT AUTO 66.3 % (40.0-78.1); PLATELET COUNT,PLT 219 K/uL (130-375); WHITE BLOOD CELL COUNT,WBC 8.1 K/uL (3.2-11.0)
[2024-04-18 18:37] LABS: IMMATURE GRAN ABSOLUTE AUTO 0.02 K/uL (0.00-0.23)
[2024-04-18 18:50] LABS: ANION GAP 10.5 mmol/L (5.0-14.0); CREATININE 1.3 mg/dL (0.8-1.3); EST CRCL DRUG DOSING (CG) 43.05 mL/min; POTASSIUM,K 4.5 mmol/L (3.6-5.2)
[2024-04-18 18:52] LABS: PROTHROMBIN TIME 10.2 sec (9.2-10.6)
[2024-04-18] MEDS: Iopamidol 755 Mg/ML 100 ML Bottle IV SCH (20:27)
[2024-04-18] MEDS: Sodium Chloride 0.9% 80 ML IV SCH (20:27)
[2024-04-18 22:48] VITALS: BP 180/86; PULSE 75
== END 2024-04-18 23:40 | disposition left against medical advice (07) ==
LOC: JP.ED 17:59
DX: G45.9 Transient cerebral ischemic attack, unspecified (principal); I10 Essential (primary) hypertension; E78.00 Pure hypercholesterolemia, unspecified; E11.9 Type 2 diabetes mellitus without complications; Z79.84 Long term (current) use of oral hypoglycemic drugs; Z79.899 Other long term (current) drug therapy; Z79.82 Long term (current) use of aspirin; Z79.02 Long term (current) use of antithrombotics/antiplatelets; Z86.73 Personal history of transient ischemic attack (TIA), and cerebral infarction without residual deficits
CPT/HCPCS: 36415; 70450; 70496; 70498; 80048; 85025; 85610; 99285; Q9967

== ENCOUNTER 2024-07-22 11:54 | Emergency (ER) | payer MEDICARE ==
[2024-07-22 13:02] LABS: BASOPHILS ABSOLUTE AUTO 0.05 K/uL (0.00-0.10); BASOPHILS PERCENT AUTO 0.6 % (0.1-1.3); EOSINOPHILS ABSOLUTE AUTO 0.45 K/uL (0.00-0.40); EOSINOPHILS PERCENT AUTO 5.3 % (0.0-5.4); HEMATOCRIT 41.7 % (38.4-49.7); HEMOGLOBIN 13.4 g/dL (12.9-16.9); IMMATURE GRAN PERCENT AUTO 0.2 % (0.0-0.7); LYMPHOCYTES ABSOLUTE AUTO 1.65 K/uL (0.8-3.3); LYMPHOCYTES PERCENT AUTO 19.4 % (11.4-47.7); MEAN CORPUSCULAR HEMOGLOBIN 29.5 pg (31.6-35.5); MEAN CORPUSCULAR HGB CONC 32.1 g/dL (31.6-35.5); MEAN CORPUSCULAR VOLUME 91.6 fL (81.4-99.0); MONOCYTES ABSOLUTE AUTO 0.91 K/uL (0.20-0.90); MONOCYTES PERCENT AUTO 10.7 % (3.3-12.6); NEUTROPHILS ABSOLUTE AUTO 5.41 K/uL (1.0-7.6); NEUTROPHILS PERCENT AUTO 63.8 % (40.0-78.1); PLATELET COUNT,PLT 203 K/uL (130-375); RED BLOOD CELL COUNT 4.55 M/uL (4.14-5.76); WHITE BLOOD CELL COUNT,WBC 8.5 K/uL (3.2-11.0)
[2024-07-22 13:04] LABS: IMMATURE GRAN ABSOLUTE AUTO 0.02 K/uL (0.00-0.23)
[2024-07-22 13:25] LABS: ALANINE AMINOTRANSFERASE,ALT 36 U/L (12-78); ALBUMIN 3.6 g/dL (3.4-5.0); ALKALINE PHOSPHATASE 94 U/L (46-116); ANION GAP 7.4 mmol/L (5.0-14.0); ASPARTATE AMNIOTRANSFERASE,AST 18 U/L (15-37); BILIRUBIN TOTAL 0.5 mg/dL (0.2-1.0); BLOOD UREA NITROGEN,BUN 20 mg/dL (7-18); CALCIUM 9.1 mg/dL (8.5-10.1); CARBON DIOXIDE,CO2 28 mmol/L (21-32); CHLORIDE,CL 105 mmol/L (100-108); CREATININE 1.2 mg/dL (0.8-1.3); EST CRCL DRUG DOSING (CG) 42.09 mL/min; ESTIMATED GFR 60 mL/min (>60); GLUCOSE RANDOM 131 mg/dL (74-106); POTASSIUM,K 4.6 mmol/L (3.6-5.2); PROTEIN TOTAL,TP 7.1 g/dL (6.4-8.2); SODIUM,NA 140 mmol/L (140-148); TROPONIN I HIGH SENSITIVITY < 4.0 pg/mL (<=60.3)
[2024-07-22] MEDS: Aspirin 81 MG Tab.Chew PO ONE (13:30)
[2024-07-22] MEDS: Clopidogrel 75 MG Tab PO ONE (13:31)
[2024-07-22] MEDS: Sodium Chloride 0.9% 10 ML Syringe FLUSH PRN ×2 (13:36→14:09)
[2024-07-22] MEDS: Iopamidol 755 Mg/ML 100 ML Bottle IV SCH (14:09)
[2024-07-22] MEDS: Sodium Chloride 0.9% 100 ML IV ONE (14:09)
[2024-07-22 16:17] VITALS: BP 147/64; PULSE 84
== END 2024-07-22 16:25 | disposition home or self-care (01) ==
LOC: JP.ED 11:54
DX: G45.9 Transient cerebral ischemic attack, unspecified (principal); E78.00 Pure hypercholesterolemia, unspecified; I10 Essential (primary) hypertension; E11.9 Type 2 diabetes mellitus without complications; Z79.899 Other long term (current) drug therapy; Z79.84 Long term (current) use of oral hypoglycemic drugs; Z86.73 Personal history of transient ischemic attack (TIA), and cerebral infarction without residual deficits
CPT/HCPCS: 36415; 70450; 70496; 70498; 80053; 84484; 85025; 99285; A9270; Q9967

== ENCOUNTER 2024-12-15 08:53 | Emergency (ER) | payer MEDICARE ==
[2024-12-15] MEDS ORDERED: Sodium Chloride 0.9% 10 ML Syringe FLUSH PRN (09:33)
[2024-12-15 09:43] LABS: BASOPHILS ABSOLUTE AUTO 0.07 K/uL (0.00-0.10); BASOPHILS PERCENT AUTO 0.5 % (0.1-1.3); EOSINOPHILS ABSOLUTE AUTO 0.24 K/uL (0.00-0.40); EOSINOPHILS PERCENT AUTO 1.8 % (0.0-5.4); IMMATURE GRAN ABSOLUTE AUTO 0.06 K/uL (0.00-0.23); IMMATURE GRAN PERCENT AUTO 0.4 % (0.0-0.7); LYMPHOCYTES ABSOLUTE AUTO 1.61 K/uL (0.8-3.3); LYMPHOCYTES PERCENT AUTO 11.8 % (11.4-47.7); MONOCYTES ABSOLUTE AUTO 1.05 K/uL (0.20-0.90); MONOCYTES PERCENT AUTO 7.7 % (3.3-12.6); NEUTROPHILS ABSOLUTE AUTO 10.65 K/uL (1.0-7.6); NEUTROPHILS PERCENT AUTO 77.8 % (40.0-78.1); PLATELET COUNT,PLT 340 K/uL (130-375); RED BLOOD CELL COUNT 4.66 M/uL (4.14-5.76); WHITE BLOOD CELL COUNT,WBC 13.7 K/uL (3.2-11.0)
[2024-12-15 10:03] LABS: INR 1.1; PTT,PARTIAL THROMBOPLSTIN TIME 25.6 sec (21.8-27.3)
[2024-12-15 10:06] LABS: A/G RATIO 0.8 (1.2-2.2); ALANINE AMINOTRANSFERASE,ALT 29 U/L (12-78); ASPARTATE AMNIOTRANSFERASE,AST 17 U/L (15-37); BILIRUBIN TOTAL 0.6 mg/dL (0.2-1.0); BLOOD UREA NITROGEN,BUN 22 mg/dL (7-18); CARBON DIOXIDE,CO2 29 mmol/L (21-32); CHLORIDE,CL 99 mmol/L (100-108); CREATININE 1.3 mg/dL (0.8-1.3); EST CRCL DRUG DOSING (CG) 37.45 mL/min; ESTIMATED GFR 55 mL/min (>60); GLUCOSE RANDOM 130 mg/dL (74-106); POTASSIUM,K 4.4 mmol/L (3.6-5.2); PROTEIN TOTAL,TP 7.3 g/dL (6.4-8.2); SODIUM,NA 135 mmol/L (140-148); TROPONIN I HIGH SENSITIVITY 4.6 pg/mL (<=60.3)
[2024-12-15] MEDS ORDERED: Iopamidol 755 Mg/ML 100 ML Bottle IV SCH (10:15)
[2024-12-15 12:11] VITALS: BP 139/74; PULSE 79
== END 2024-12-15 12:24 | disposition home or self-care (01) ==
LOC: JP.ED 08:53
DX: G45.9 Transient cerebral ischemic attack, unspecified (principal); I10 Essential (primary) hypertension; E78.00 Pure hypercholesterolemia, unspecified; E11.9 Type 2 diabetes mellitus without complications; Z79.82 Long term (current) use of aspirin; Z79.84 Long term (current) use of oral hypoglycemic drugs; Z79.899 Other long term (current) drug therapy
CPT/HCPCS: 36415; 70450; 70496; 70498; 80053; 82947; 84484; 85025; 85610; 85730; 93005; 96360; 99285; A9270; J7030